=== PATIENT | female | born 1960 | race African-American/Black ===

== ENCOUNTER → 2016-07-03 | Outpatient (CLI) | payer OTHER ==
--- NOTE | ~2016-07-03 | CR97 ---
[facility] A Service of [facility] RADIOLOGY TEXT RESULTS PATIENT: CODY WEBBER LOCATION: [facility] : 56 UNIT #: [id number] AGE: [address]: Jatin Gardner III, MD SEX: F ORDER DR: [id number] [place], [place] [address] [id number] O MR#: [id number] Acc #: [id number] NAME: CODY WEBBER. : 1960 SEX: F STUDY DATE/TIME: 07/03/2016 10:24 UNIT: [facility] ROOM: STUDY DESCRIPTION: CR Esophagram Attending Physician: Jatin Gardner III, M.D. Ordering Physician: Jatin Gardner III, M.D. Primary Care Physician: No Primary Care Physician MEDICAL IMAGING REPORT This report is preliminary unless electronic signature is present EXAM Esophagram with fluoroscopy. DATE 07/03/2016 HISTORY Physician's order states dysphagia. Patient denies dysphagia. This patient states laparoscopic gastric band adjustment approximately 1 year ago, and her new referring physician at this time wants the band rechecked. COMPARISON None. FINDINGS Rapid fluoroscopic imaging was obtained of the esophagus during ingestion of thin consistencies, in various projections. Normal distension of the esophagus without mass lesion or stricture. The gastric band device appears appropriately positioned without evidence of slip. No erosive changes are identified. No hernia defect is seen. There is slight delay of contrast transit through the banded section, but no high-grade low blockage is seen. The access port of the band is located in the left lower quadrant the abdomen. 49 spot fluoroscopic images were obtained. Total fluoroscopy time 1.1 minutes. IMPRESSION 1. Gastric band device appears satisfactorily positioned in the AP view, without evidence of slip. No hernia is seen. 2. There is only mild delay in transit of contrast through the banded segment, as would typically be expected. No significant contrast passage delay is identified. [facility] A Service of [facility] RADIOLOGY TEXT RESULTS PATIENT: CODY WEBBER LOCATION: [facility] : 56 UNIT #: [id number] AGE: [address]: Jatin Gardner III, MD SEX: F ORDER DR: 3. Unremarkable appearance of the thoracic esophagus. Dictated by... Brie Singh M.D. THIS IS AN ELECTRONICALLY VERIFIED REPORT Brie Singh M.D. at 07/06/2016 8:32 AM ALIVIA/nicole TD: 07/03/2016 15:09 JOB #: [id number] MEDICAL IMAGING REPORT Page 1 of 1 COPY
== END | disposition home or self-care (01) ==
LOC: CRAD 09:00
DX: R13.10 Dysphagia, unspecified (principal)
CPT/HCPCS: 74220